=== PATIENT | female | born 1940 | race Caucasian/White ===

== ENCOUNTER 2018-07-13 19:28 | Inpatient (IN) | payer MEDICARE, OTHER ==
[~2018-07-13] VITALS: Ht 170.2 cm; Wt 63.5 kg
--- NOTE | ~2018-07-13 | CN ---
PATIENT NAME:LUIGI WALTNO MEDICAL RECORD: [id number] : 36 LOCATION:[facility] D.2112 ADMIT DATE: 07/13/18 ACCOUNT: [id number] CONSULTING PHYSICIAN: ERNESTO DUKES MD REFERRING PHYSICIAN: KIP COLINDRES MD DATE OF CONSULTATION: 07/14/2018 CARDIOLOGY CONSULTATION DIAGNOSES: 1. Atrial fibrillation. 2. Abnormal ECG. 3. Coumadin anticoagulation. 4. Decreased consciousness. 5. Urinary tract infection. 6. Hypertension. HISTORY OF PRESENT ILLNESS: Ms. Walton was sent from a nursing facility due to decreased consciousness, found to have an UTI. She has atrial fibrillation; however, this is chronic. Initially, her rate was rapid in the 120s. She received a dose of Lopressor and her heart rate is now in the 90s. At home, she is on Inderal, propafenone, and digoxin. These have been restarted. Her troponins are normal. She has a right bundle-branch block as well as the atrial fibrillation; however, this is not new as well. PHYSICAL EXAMINATION: GENERAL APPEARANCE: Well-nourished, well-developed, appears stated age. Level of distress, comfortable. PSYCHIATRIC: Mental status, alert, normal affect. Orientation, oriented to time, place and person. EYES: Lids and conjunctiva, noninjected. No discharge, no pallor. ENT: Lips, teeth, gums, normal dentition. Oropharynx, no cyanosis, no pallor. NECK: Carotid arteries, bilateral normal upstroke, no bruits, no thrills. JUGULAR VEINS: No jugular venous pressure or distention. CERVICAL LYMPH NODES: Nontender, nonenlarged. THYROID: Not enlarged. Nontender. No nodules. LUNGS: Respiratory effort, unlabored. CHEST: Normal curvature. No thoracic deformity. No chest wall tenderness. Percussion, resonant. Auscultation, clear. No wheezes, no rales, no rhonchi. CARDIOVASCULAR: Irregularly irregular. EXTREMITIES: No cyanosis, no edema. Peripheral pulses, full and equal in all extremities, except as noted. No bruits appreciated. ABDOMEN: Soft, nondistended. Normal aorta. No bruit. Nontender. No masses. Liver, nontender, no hepatomegaly. Spleen, nontender, no splenomegaly. MUSCULOSKELETAL: No joint tenderness. No joint swelling. No erythema. NEUROLOGICAL: Normal gait, normal strength, normal tone. SKIN: Warm and dry. OVERALL IMPRESSION: Atrial fibrillation, chronic, rate controlled with her home meds of propafenone, Inderal, and digoxin. We will continue these. We will continue her Coumadin anticoagulation. No other cardiac workup or treatment is necessary. TRANSINT:[id number] Voice Confirmation ID: [id number] DOCUMENT ID: [id number] CONSULT REPORT [id number] LUIGI WALTON, ERNESTO TIERNEY at 1642 CC: [id number] DICTATION DATE: 07/14/18 1103 SKIN FITTER: 07/14/18 1145 DIS IN 07/17/18 [place] [id number] [place] [address]
--- NOTE | ~2018-07-13 | EC ---
PATIENT:LUIGI SCHMITT DATE OF SERVICE: 07/13/18 SEX: F MEDICAL RECORD: [id number] DATE OF : 36 LOCATION:D.M2 D.211 AGE OF PATIENT: 78 ADMISSION DATE: 07/13/18 REFERRING PHYSICIAN: INTERPRETING PHYSICIAN: ERNESTO CORTES MD ECHOCARDIOGRAM REPORT ECHO CHARGES 4 ECHO COMPLETE Date: 07/14 CLINICAL DIAGNOSIS: CHF/AFIB HX OF [facility] ECHOCARDIOGRAPHIC MEASUREMENTS (adult normal given) AC root (d.<3.7cm) 3.5 cm LV Septum d (<1.2 cm> 1.7 cm Valve Excursion 1.8 cm LV Septum (systole) 1.8 cm Left Atria (s.<4.0cm> 3.9 cm LVPW d(<1.2cm) 1.6 cm RV (d.<2.3cm) 4.6 cm LVPW (sytole) 2.0 cm LV diastole(<5.6CM) 3.1 cm MV E-F(>70mm/sec) cm LV systole 2.0 cm LVOT Diameter 1.6 cm MV exc.(>10mm) 1.4 cm Est.ejection fraction (50-75%) % DOPPLER: LVIT cm/sec A cm/sec E 71.0 cm/sec LA cm/sec RVSP 31 mmHg LVOT 75 cm/sec AOP1/2T m/s Asc. Ao 115 cm/sec RVOT 57 cm/sec RA cm/sec PA 107 cm/sec AV Gradient Peak 5.57 mmHg AV Mean 2.90 mmHg AV Area 1.6 cm MV Gradient Peak 2.6 mmHg MV Mean 1.14 mmHg MV Area cm COMMENTS: Fireworks Display Specialist: Lizzy DEWEY Cabin Cleaning Supervisor: 1 Dr. Cortes TAPE# PACS Pericardial Effusion N DATE OF SERVICE: 07/14/2018 ECHOCARDIOGRAM FINDINGS: 1. Left ventricular chamber size is within normal limits. Left ventricular systolic function is normal. Overall ejection fraction is estimated at 60%. 2. Left atrium is at upper limits of normal at 3.9 cm. Right atrium and right ventricle chamber sizes are as well in upper limits of normal. 3. Valvular structures have normal structure and motion. ECHOCARDIOGRAM REPORT [id number] LUIGI SCHMITT 4. Doppler interrogation reveals mild mitral regurgitation and moderate tricuspid regurgitation. No other valvular insufficiency or stenosis. Pulmonary systolic pressure is estimated at 31 mmHg. 5. No evidence of pericardial effusion or left ventricular thrombus. TRANSINT:[id number] Voice Confirmation ID: [id number] DOCUMENT ID: [id number] ERNESTO CORTES MD at 1642 CC: [id number] DICTATION DATE: 07/15/18 1151 COVERED BUTTON MAKER: 07/15/18 1253 DIS IN 07/17/18 [place] [id number] [place] [id number]
[2018-07-13] MEDS ORDERED: CEFUROXIME250 MG PO (19:41)
[2018-07-13] MEDS ORDERED: VITAMIN D31000 UNIT PO (19:41)
[2018-07-13] MEDS ORDERED: SINEMET 25-1001 EACH PO (19:41)
[2018-07-13] MEDS ORDERED: LANOXIN125 MCG PO (19:42)
[2018-07-13] MEDS ORDERED: CRANBERRY 400 M1 TA1 PO (19:42)
[2018-07-13] MEDS ORDERED: ESTRACE 0.5 MG0.5 MG PO (19:42)
[2018-07-13] MEDS ORDERED: CELEXA20 MG PO (19:42)
[2018-07-13] MEDS ORDERED: ADVAIR HFA [SP]12 GM INH (19:43)
[2018-07-13] MEDS ORDERED: SINGULAIR10 MG PO (19:44)
[2018-07-13] MEDS ORDERED: LOVASTATIN10 MG PO (19:44)
[2018-07-13] MEDS ORDERED: GLUCOSAMINE HC500 MG PO (19:44)
[2018-07-13] MEDS ORDERED: OMEPRAZOLE20 M1 PO (19:45)
[2018-07-13] MEDS ORDERED: MYSOLINE250 MG PO (19:45)
[2018-07-13] MEDS ORDERED: INDERAL LA120 MG PO (19:46)
[2018-07-13] MEDS ORDERED: RYTHMOL SR325 MG PO (19:46)
[2018-07-13] MEDS ORDERED: COUMADIN5 MG PO (19:47)
[2018-07-13 20:26] LABS: BASOPHILS 0.4 % (0-2); EOSINOPHILS 0.9 % (0-7); HEMATOCRIT 41.6 % (36.0-48.0); HEMOGLOBIN 14.5 g/dL (12-16); IMMATURE GRANULOCYTES 0.3 % (0-5); LYMPHOCYTES 22.3 % (15-50); MCH 31.4 pg (26.0-34.0); MCHC 34.9 g/dL (31.0-37.0); MEAN PLATELET VOLUME 11.1 fL (7.4-10.4); MONOCYTES 10.5 % (2-11); NEUTROPHILS 65.6 % (40-80); PLATELET COUNT 225 10x3/uL (130-400); RBC 4.62 10x6/uL (4.00-5.40); RDW 13.7 % (11.5-14.5); WBC 13.5 10x3/uL (4.8-10.8)
[2018-07-13 20:35] LABS: INR 2.66 (0.85-1.17); PROTIME 27.6 SECONDS (11.6-15.0)
[2018-07-13 20:36] LABS: APTT 44.5 SECONDS (22.8-39.4)
[2018-07-13 20:37] LABS: D-DIMER-QUANTITATIVE 1.27 ug/mLFEU (0.20-0.54)
[2018-07-13 20:46] VITALS: BP 124/67
[2018-07-13 20:46] LABS: ALBUMIN 2.1 g/dL (3.4-5.0); ALKALINE PHOSPHATASE 100 U/L (46-116); ALT (SGPT) 54 U/L (10-68); BILIRUBIN - TOTAL 0.74 mg/dL (0.2-1.3); CALC OSMOLALITY 274 mosm/kg (275-300); CALCIUM 7.8 mg/dL (8.5-10.1); CARBON DIOXIDE 24.2 mmol/L (21.0-32.0); CHLORIDE - SERUM 104 mmol/L (98-107); GLUCOSE 93 mg/dL (74-106); PROTEIN - SERUM 6.3 g/dL (6.4-8.2); SODIUM 136 mmol/L (136-145); UREA NITROGEN 22 mg/dL (7-18); eGFR NON AFRICAN AMERICAN 56 mL/min (90-120)
[2018-07-13 20:59] LABS: CKMB 5.8 U/L (0.0-3.6); CREATINE KINASE 69 UL (21-215); DIGOXIN 1.28 ng/mL (0.90-2.00); LIPASE 459 U/L (73-393); PRO BNP 2087 pg/mL (0-450); TROPONIN-I 0.048 ng/mL (0.000-0.060)
[2018-07-13 21:18] LABS: APPEARANCE HAZY (CLEAR); BILIRUBIN NEGATIVE (NEGATIVE); COLOR YELLOW (YELLOW); GLUCOSE NEGATIVE (NEGATIVE); KETONE MODERATE mg/dL (NEGATIVE); NITRITE NEGATIVE (NEGATIVE); PROTEIN TRACE mg/dL (NEGATIVE); SPECIFIC GRAVITY 1.025 (1.005-1.020); UROBILINOGEN NORMAL (NORMAL)
[2018-07-13 21:19] LABS: BACTERIA MANY /hpf (NONE SEEN); WHITE CELLS - URINE >50 /hpf (0-5); YEAST >1+ WITH HYPHAE /hpf (NONE SEEN)
[2018-07-13 22:09] VITALS: BP 135/80
[2018-07-14] VITALS: BP 125/72
[2018-07-14] MEDS ORDERED: ZOLOFT25 MG PO (00:12)
[2018-07-14] MEDS ORDERED: MYSOLINE250 MG PO (00:13)
[2018-07-14] MEDS ORDERED: SINEMET CR 50-1 EACH PO ×3 (00:17→00:18)
[2018-07-14] MEDS ORDERED: GLUCOSAMINE HC500 MG PO (00:22)
[2018-07-14] MEDS ORDERED: ACETAMINOPHEN500 M1 PO (00:25)
[2018-07-14] MEDS ORDERED: BENADRYL25 MG PO (00:25)
[2018-07-14 01:19] VITALS: BP 125/72; BMI 21.9
[2018-07-14 06:35] VITALS: BP 106/71
[2018-07-14 07:25] LABS: TROPONIN-I 0.047 ng/mL (0.000-0.060)
[2018-07-14 07:53] VITALS: BP 93/42
[2018-07-14 09:09] VITALS: BMI 21.9
[2018-07-14 10:42] VITALS: Ht 170.2 cm; Wt 63.5 kg
[2018-07-14 15:20] VITALS: BP 100/55
[2018-07-14 19:00] VITALS: BP 97/46
[2018-07-15 00:29] VITALS: BP 93/51
[2018-07-15 05:06] VITALS: BP 111/57
[2018-07-15 05:14] LABS: BASOPHILS 0.8 % (0-2); EOSINOPHILS 1.9 % (0-7); IMMATURE GRANULOCYTES 0.1 % (0-5); MCH 29.9 pg (26.0-34.0); MCHC 33.1 g/dL (31.0-37.0); MCV 90.4 fL (80.0-100.0); MEAN PLATELET VOLUME 11.1 fL (7.4-10.4); MONOCYTES 11.3 % (2-11); NEUTROPHILS 54.9 % (40-80); PLATELET COUNT 185 10x3/uL (130-400); RDW 14.2 % (11.5-14.5)
[2018-07-15 05:21] LABS: HEMATOCRIT 32.9 % (36.0-48.0); HEMOGLOBIN 10.9 g/dL (12-16); RBC 3.64 10x6/uL (4.00-5.40)
[2018-07-15 05:22] LABS: ANION GAP 8.6 mmol/L (8-16); CARBON DIOXIDE 25.2 mmol/L (21.0-32.0); CREATININE - SERUM 0.9 mg/dL (0.6-1.3); POTASSIUM - SERUM 3.8 mmol/L (3.5-5.1)
[2018-07-15 05:26] LABS: CALCIUM 6.9 mg/dL (8.5-10.1)
[2018-07-15 05:38] LABS: INR 1.97 (0.85-1.17); PROTIME 21.8 SECONDS (11.6-15.0)
[2018-07-15 08:43] VITALS: BP 85/46
[2018-07-15] MEDS ORDERED: LOPRESSOR25 MG PO (11:47)
[2018-07-15 13:35] VITALS: BP 93/47
[2018-07-15 16:17] VITALS: BP 94/53
[2018-07-15 21:24] VITALS: BP 108/62
[2018-07-16 00:57] VITALS: BP 108/61
[2018-07-16 05:52] VITALS: BP 125/65
[2018-07-16 06:14] LABS: BASOPHILS 0.8 % (0-2); EOSINOPHILS 2.6 % (0-7); HEMATOCRIT 34.7 % (36.0-48.0); HEMOGLOBIN 11.5 g/dL (12-16); IMMATURE GRANULOCYTES 0.1 % (0-5); LYMPHOCYTES 25.7 % (15-50); MCH 30.5 pg (26.0-34.0); MCHC 33.1 g/dL (31.0-37.0); MEAN PLATELET VOLUME 10.8 fL (7.4-10.4); MONOCYTES 10.9 % (2-11); NEUTROPHILS 59.9 % (40-80); PLATELET COUNT 171 10x3/uL (130-400); RBC 3.77 10x6/uL (4.00-5.40); RDW 14.2 % (11.5-14.5)
[2018-07-16 06:24] LABS: INR 1.61 (0.85-1.17); PROTIME 18.7 SECONDS (11.6-15.0)
[2018-07-16 07:05] LABS: ANION GAP 12.4 mmol/L (8-16); CALCIUM 7.4 mg/dL (8.5-10.1); CARBON DIOXIDE 24.4 mmol/L (21.0-32.0); CREATININE - SERUM 0.9 mg/dL (0.6-1.3); POTASSIUM - SERUM 3.8 mmol/L (3.5-5.1)
[2018-07-16 07:59] VITALS: BP 123/65
[2018-07-16 11:59] VITALS: BP 109/57
[2018-07-16] MEDS ORDERED: LOPRESSOR25 MG PO (14:08)
[2018-07-16] MEDS ORDERED: CRANBERRY 400 M1 TA1 PO (15:18)
[2018-07-16] MEDS ORDERED: ATROVENT 0.02%2.5 ML UPD (15:19)
[2018-07-16] MEDS ORDERED: CARBIDOPA-LEVO1 EACH PO (15:23)
[2018-07-16 20:00] VITALS: BP 107/62
[2018-07-17 04:17] VITALS: BP 109/51
[2018-07-17 05:57] LABS: BASOPHILS 0.5 % (0-2); EOSINOPHILS 2.2 % (0-7); HEMATOCRIT 34.9 % (36.0-48.0); HEMOGLOBIN 11.5 g/dL (12-16); IMMATURE GRANULOCYTES 0.3 % (0-5); LYMPHOCYTES 24.2 % (15-50); MCH 30.3 pg (26.0-34.0); MCV 91.8 fL (80.0-100.0); MEAN PLATELET VOLUME 10.8 fL (7.4-10.4); MONOCYTES 9.3 % (2-11); NEUTROPHILS 63.5 % (40-80); PLATELET COUNT 170 10x3/uL (130-400); RDW 14.1 % (11.5-14.5); WBC 7.4 10x3/uL (4.8-10.8)
[2018-07-17 06:13] LABS: ANION GAP 7.3 mmol/L (8-16); CALCIUM 7.3 mg/dL (8.5-10.1); CARBON DIOXIDE 27.2 mmol/L (21.0-32.0); POTASSIUM - SERUM 3.5 mmol/L (3.5-5.1)
[2018-07-17 06:48] LABS: INR 1.75 (0.85-1.17); PROTIME 19.6 SECONDS (11.6-15.0)
[2018-07-17 08:13] VITALS: BP 104/72
== END 2018-07-17 10:01 | DRG 309 ==
LOC: D.ER 19:28 → D.M2 22:32
PROVIDERS: Emergency Medicine; Internal Medicine Nephrology
DX: I48.91 Unspecified atrial fibrillation (principal); N39.0 Urinary tract infection, site not specified; I69.351 Hemiplegia and hemiparesis following cerebral infarction affecting right dominant side; N17.9 Acute kidney failure, unspecified; J44.9 Chronic obstructive pulmonary disease, unspecified; G20 Parkinson's disease; I45.19 Other right bundle-branch block